=== PATIENT | male | born 1950 | race Caucasian/White ===

== ENCOUNTER → 2020-09-28 | Outpatient (CLI) | payer MEDICARE ==
[~2020-09-28] MED LIST: ATENOLOL 50 MG50 M1 PO; CRESTOR20 MG PO; FISH OIL 1,001000 M3 PO; K-DUR 20 MEQ T20 MEQ PO; LISINOPRIL2.5 MG PO; NAPROXEN250 MG PO; TENORETIC 50 T1 EACH PO; VITAMIN E1000 UNIT PO
--- NOTE | 2020-09-28 09:58 | 2DMMODE ---
[place] [address] 2 D/M-MODE ECHOCARDIOGRAM Name: RICKI BLUE Room: [facility]#: [id number] Admission: 09/28/20 Attend Phys: Andreea Ward Discharge: Date of : 48 Date of Service: 09/28/20 0958 Report #: [id number] THIS REPORT FOR: cc: Maritza Rodriguez MD, Tuongvan T. MD Blick, David R. MD [facility] ~ APPROVED REPORT Study performed: 09/28/2020 07:44:21 EXAM: Comprehensive 2D, Doppler, and color-flow Echocardiogram Patient Location: Out-Patient BSA: 2.27 HR: 70 bpm BP: 135/80 mmHg Other Information Study Quality: Good Indications Aortic Valve Disease Chest Pain Hypertension/HDD 2D Dimensions IVSd: 10.48 (7-11mm) LVOT Diam: 19.97 (18-24mm) LVDd: 44.69 mm PWd: 9.39 (7-11mm) Ascending Ao: 32.28 (22-36mm) LVDs: 28.14 (25-40mm) Aortic Root: 27.07 mm Volumes Left Atrial Volume (Systole) LA ESV Index: 14.60 mL/m2 Aortic Valve AoV Peak Benedict.: 2.19 m/s AO Peak Gr.: 19.25 mmHg LVOT Max P.34 mmHg AO Mean Gr.: 11.01 mmHg LVOT Mean P.18 mmHg LVOT Max V: 0.76 m/s AO V2 VTI: 50.35 cm LVOT Mean V: 0.50 m/s [place] (VTI): 1.18 cm2 LVOT V1 VTI: 19.04 cm AI [place]: 2.15 m/s2 [place] [address] 2 D/M-MODE ECHOCARDIOGRAM Name: RICKI BLUE Room: [facility]#: [id number] Admission: 09/28/20 Attend Phys: Andreea Ward Discharge: Date of : 48 Date of Service: 09/28/20 0958 Report #: [id number] AI PHT: 486.99 ms Mitral Valve E/A Ratio: 1.34 MV Decel. Time: 192.69 ms MV E Max Benedict.: 0.77 m/s MV PHT: 55.88 ms MVA (PHT): 3.94 cm2 TDI E/Lateral E': 7.70 E/Medial E': 9.63 Medial E' Benedict.: 0.08 m/s Lateral E' Benedict.: 0.10 m/s Pulmonary Valve PV Peak Benedict.: 0.98 m/s PV Peak Gr.: 3.82 mmHg Tricuspid Valve RAP Estimate: 5.00 mmHg TR Peak Gr.: 25.19 mmHg RVSP: 30.19 mmHg PA Pressure: 30.19 mmHg Left Ventricle The left ventricle is normal size. There is normal LV segmental wall motion. There is normal left ventricular wall thickness. Left ventricular systolic function is normal. The left ventricular ejection fraction is within the normal range. LVEF is 55-60%. The left ventricular diastolic function is normal. Right Ventricle The right ventricle is normal size. The right ventricular systolic function is normal. Atria The left atrium size is normal. The right atrium size is normal. Aortic Valve Aortic valve is calcified. Mild aortic regurgitation. There is mild aortic valvular stenosis. Mitral Valve The mitral valve is mildly thickened. Trace mitral regurgitation. No evidence of mitral valve stenosis[place] [address] 2 D/M-MODE ECHOCARDIOGRAM Name: RICKI BLUE Room: [facility]#: [id number] Admission: 09/28/20 Attend Phys: Andreea Ward Discharge: Date of : 48 Date of Service: 09/28/20 0958 Report #: [id number] The tricuspid valve is normal in structure. Mild tricuspid regurgitation. Pulmonic Valve The pulmonary valve is normal in structure. There is no pulmonic valvular regurgitation. Great Vessels The aortic root is normal in size. IVC is normal in size and collapses >50% with inspiration. Pericardium There is no pericardial effusion. <Conclusion> LVEF is 55-60%. There is mild aortic valvular stenosis. Mild aortic regurgitation. Trace mitral regurgitation. <ELECTRONICALLY SIGNED> By: Cheng Jj MD, FACC 09/28/2058 7 7 Cheng Jj MD, FACC /INF
--- NOTE | 2020-09-28 17:11 | CARDNUC ---
[place] [address] CARDIAC NUCLEAR IMAGING REPORT Name: RICKI BLUE Room: [facility]#: [id number] Admission: 09/28/20 Attend Phys: Andreea Ward Discharge: Date of : 48 Date of Service: 09/28/20 1711 Report #: [id number] THIS REPORT FOR: cc: Maritza Rodriguez MD, Tuongvan T. MD Liston, Michael J. MD [facility] ~ APPROVED REPORT Study performed: 09/28/2020 11:00:31 Exam: Nuclear Stress Test Indication: Left sided chest pain. Patient Location: Out-Patient Stress Tech: Mabel Ibarra Stress Nurse: Mary Mckeon R.N. Ht: 5 ft 11 in Wt: 238 lbs BSA: 2.27 m2 BMI: 33.19 Medical History Medical History: Chest pain, cardiac murmur, nonrheumatic aortic valve stenosis, ED, GERD, hypercholesterolemia, DM II, HTN, HLD, past smoker, obesity. Medications: Tenoretic, Lisinopril, Klor-con, Rosuvastatin. Allergies: PNC, simvastatin. Cardiac Risk Factors: Age, DM, HTN, Hyperlipidemia, Past Smoker, murmur, nonrheumatic aortic valve stenosis, obesity. Previous Cardiac Procedures: None Pretest Chest Pain Characteristics: No chest pain Exercise History: Physically active Physical Disabilities: None noted Meds Held (24 hrs): Tenoretic. Stress Test Details Stress Test: Exercise stress testing was performed using a Maykel protocol. HR Resting HR: 65 bpm Max Heart Rate (APMHR): 150 bpm Max HR Achieved: 255 bpm Target HR (85% APMHR): 127 bpm % of APMHR: 170 Recovery HR: 91 [place] [address] CARDIAC NUCLEAR IMAGING REPORT Name: RICKI BLUE Room: [facility]#: [id number] Admission: 09/28/20 Attend Phys: Andreea Wadr Discharge: Date of : 48 Date of Service: 09/28/20 1711 Report #: [id number] Resting BP: 149/72 mmHg Max BP: 211/71 mmHg ECG Resting ECG: Sinus Rhythm Stress ECG: Sinus Tachycardia ST Change: Downsloping ST depression Maximum ST Deviation: 1 mm Arrhythmia: None Recovery ECG: Sinus Rhythm Recovery ST Change: Downsloping ST depression Recovery ST Deviation: 1 mm Recovery Arrhythmia: None Clinical Reason for Termination: Completed protocol, Maximal effort, Dyspnea. Stress Symptoms: Dyspnea, chest tightness 4/10, leg fatigue. Exercise duration: 8 min 44 sec Exercise capacity: 10.16 METs Overall Exercise Capacity for Age: Superior Patient noted mild chest tightness with standard Maykel protocol exercise suggestive of exertional angina. Nurse Comments A 69 year old male tolerated a treadmill nuclear stress test to stage 3, target HR achieved. Patient was stable and stated he felt good when escorted to nuclear medicine for imaging. Exercise capacity - Superior. Stress ECG Conclusion The baseline twelve-lead EKG shows sinus rhythm without significant ST segment abnormality. EKGs obtained during and post exercise show sinus rhythm and sinus tachycardia with [address] segment depression noted in the inferior and anterolateral leads. NM EXAM: Myocardial Perfusion REST/STRESS Resting Data Rest SPECT myocardial perfusion imaging was performed in supine position 30 minutes following the intravenous injection of 9.2 mCi of Tc-99m Sestamibi. Time of rest injection: 900 The images were gated to evaluate regional wall motion and calculate left ventricular ejection fraction. Administration Route: [place] [address] CARDIAC NUCLEAR IMAGING REPORT Name: RICKI BLUE [place] Room: [facility]#: [id number] Admission: 09/28/20 Attend Phys: Andreea Ward Discharge: Date of : 48 Date of Service: 09/28/20 1711 Report #: [id number] Administration Site: Right AC Exercise Stress At peak stress, the patient was injected intravenously with 28.7mCi of Tc-99m Sestamibi. Time of stress injection: 11:15 Administration Route: IV Administration Site: Right AC Heart Rate at time of stress injection: 141 bpm. Patient continued to exercise for 1 minute(s). Gated Stress SPECT was performed 30 minutes after stress injection. The images were gated to evaluate regional wall motion and calculate left ventricular ejection fraction. Prone imaging was performed. Study Quality Study: Good Artifact: No artifact Study Data At rest, the left ventricular ejection fraction was 66%.. Post stress, the left ventricular ejection was 59%.. TID = 0.92. Perfusion There is a focal moderate intensity reversible defect of the apex suggesting ischemia in the apex. No other significant fixed or reversible defects are identified. Wall Motion Global LV systolic function appears normal. Nuclear Conclusion ECG Findings: positive for ischemia Clinical Findings: positive for ischemia Nuclear Findings: positive for ischemia Exercise Capacity: normal Left Ventricular Function: normal Risk Study: moderate Perfusion study suggest region of ischemia involving the apex. Global LV systolic function is preserved. This is a moderate risk study. <Conclusion> The baseline twelve-lead EKG shows sinus rhythm [place] [address] CARDIAC NUCLEAR IMAGING REPORT Name: RICKI BLUE Room: [facility]#: [id number] Admission: 09/28/20 Attend Phys: Andreea Ward Discharge: Date of : 48 Date of Service: 09/28/20 1711 Report #: [id number] segment abnormality. EKGs obtained during and post exercise show sinus rhythm and sinus tachycardia with [address] segment depression noted in the inferior and anterolateral leads. <ELECTRONICALLY SIGNED> By: Marcos White MD, FACC 09/28/201710 10 10 Marcos White MD, FACC /INF
== END ==
LOC: M.NUC 09-19 14:57 → M.CRD 09-23 13:00 → M.NUC 09-23 15:00 → M.CRD 07:30
PROVIDERS: ATTEND Internal Medicine
DX: I08.3 Combined rheumatic disorders of mitral, aortic and tricuspid valves (principal); R55 Syncope and collapse; R00.0 Tachycardia, unspecified; R07.89 Other chest pain; I10 Essential (primary) hypertension

== ENCOUNTER 2020-10-10 09:08 | Observation (INO) | payer MEDICARE ==
[~2020-10-10] VITALS: Ht 182.9 cm; Wt 106.1 kg
[2020-10-10] VITALS (11 sets, daily range): BP systolic 121–140; BP diastolic 59–83
[~2020-10-10 09:08] MED LIST changes: +ATENOLOL-CHLOR1 EACH PO
[2020-10-10 09:40] LABS: HEMATOCRIT 47.5 % (42.0-52.0); HEMOGLOBIN 16.7 gm/dL (14.0-18.0); MCH 31.8 pg (26.0-34.0); MCHC 35.2 g/dL (28.0-37.0); MCV 90.3 fL (80.0-100.0); MPV 7.2 fl. (7.2-11.1); RBC 5.26 mil/uL (4.50-6.00); RDW-CV 13.5 % (10.5-14.5); WBC 9.1 thou/uL (4.0-11.0)
[2020-10-10 09:54] LABS: ALBUMIN 3.9 g/dL (3.4-5.0); ALKALINE PHOSPHATASE 70 U/L (46-116); BUN 14 mg/dL (7-18); CALCIUM 8.5 mg/dL (8.5-10.1); CHOLESTEROL 201 mg/dL (<200); CO2 29 mmol/L (21-32); GLUCOSE 134 mg/dL (70-99); HDL CHOLESTEROL 52 mg/dL (>40); LDL CHOLESTEROL 125 mg/dL (<100); SGOT 24 U/L (15-37); SGPT 39 U/L (30-65); TC:HDL 3.9 Ratio (Not establshd); TOTAL BILIRUBIN 0.9 mg/dL (<0.1-1.0); TOTAL PROTEIN 7.5 g/dL (6.4-8.2); TRIGLYCERIDE 123 mg/dL (<150); VLDL 25 mg/dL (<40)
[2020-10-10 10:01] LABS: ANION GAP 8 mmol/L (7-16); CHLORIDE 98 mmol/L (98-107); POTASSIUM 3.7 mmol/L (3.5-5.1); SODIUM 135 mmol/L (136-145)
[2020-10-10 10:02] LABS: SERUM ASSESSMENT Clear
[2020-10-10 10:03] LABS: APTT 26.6 Seconds (25.0-31.3); INR 0.9
--- NOTE | 2020-10-10 14:03 | CARD ---
[address] [address] CARDIAC CATH REPORT Name: RICKI BLUE Room: [address] M.R.#: [id number] Admission: 10/10/20 Attend Phys: Lee Donovan MD, Discharge: Date of : 48 Report #: [id number] THIS REPORT FOR: cc: Maritza Rodriguez MD, Tuongvan T. MD Holkins,Lee Petit MD [facility] ~ APPROVED REPORT Study performed: 10/10/2020 10:03:38 Patient Details Patient Status: Out-Patient Room #: The patient is a 70 year-old male Event Personnel Lee Donovan Portfolio Accountant, Clarissa Easton RN RN, Patricia Judd RTR Scrub, Roly Hilliard RTR Monitor Procedures Performed Left Heart Cath w/or w/o Coronaries [id number] [facility] JOS w/Atherectomy Single RCA [id number] [facility] Hemostasis w/ Angioseal Indication Positive stress test Risk Factors Hypercholesterolemia, Hypertension Admission/Lab Medications/Medications given during procedure Fentanyl IV 25 mcg, Midazolam (Versed) IV 2 mg, Lidocaine Subcut 20 ml, Nitroglycerin IC 150 mcg, Angiomax IV 16 ml, Angiomax IV 37.1 ml per hr, Midazolam (Versed) IV 1 mg, Effient PO 60 mg, Aspirin PO 162 mg Procedure Narrative The patient was brought electively to the Cardiac Catheterization Laboratory and was prepped and draped in a sterile manner. The right femoral was infiltrated with 2% Lidocaine subcutaneous anesthesia. IV conscious sedation was used throughout procedure with appropriate monitoring and was performed in the presence of a registered nurse who was an independent trained observer other than the physician performing the procedure. A [place] 6 FR sheath was inserted into the right femoral artery. Coronary angiography was performed using coronary diagnostic catheters. The [place] [address] CARDIAC CATH REPORT Name: RICKI BLUE [place] Room: [address] M.R.#: [id number] Admission: 10/10/20 Attend Phys: Lee Donovan MD, Discharge: Date of : 48 Report #: [id number] and visualized with a Diagnostic JR4 6Fr catheter. The left coronary system was accessed and visualized with a Diagnostic JL4 6Fr catheter. The left ventricle was accessed and visualized with a Diagnostic Pigtail 6Fr catheter. Left ventricular/Aortic Valve gradient assessed via catheter pullback. Left ventriculogram was performed in MACEDONIAN projection. Pre-demployment femoral angiogram was performed . Closure device was deployed with a 6 Fr Angioseal. The patient tolerated the procedure well and there were no complications associated with the procedure. There was no hematoma. Intraoperative Conscious Sedation Sedation start time: 1019 Case end Time: 1151 Fentanyl 75 mcg Versed 5 mg Fluoro Time: 35.3 minutes Dose: DAP 811503 cGycm2 4856.09 mGy Contrast Type and Amount: Omnipaque 400 ml Coronary Angiography The patient's coronary anatomy is right dominant. Diagnostic Cath Left Main 0% narrowing LAD 75% calcified proximal LAD stenosis with 50% mid vessel narrowing Circumflex Small nondominant vessel with 30% mid vessel narrowing Right Coronary Large dominant vessel with 80% tubular calcified proximalmid vessel stenosis with 60% posterior lateral branch narrowing and 50% posterior descending branch narrowing Left Ventriculography The left ventricle is normal in size with normal contractility. The left ventricular ejection fraction is estimated to be 60%. Left ventricular wall motion abnormalities are not present. There is no mitral insufficiency. Hemodynamics The aortic pressure is 120/54 mmHg with a mean of 72 mmHg. The left ventricular pressure is 128/3 mmHg with a mean of mmHg. The left ventricular end diastolic pressure is 18 mmHg. There was no gradient across the aortic valve upon pullback[place] [address] CARDIAC CATH REPORT Name: RICKI BLUE Room: [address]#: [id number] Admission: 10/10/20 Attend Phys: Lee Donovan MD, Discharge: Date of : 48 Report #: [id number] Anticoagulation was achieved with Angiomax. 16mL Percutaneous coronary intervention was performed on the proximal right coronary artery. The lesion stenosis prior to intervention was 80% with DIETER 3 flow. A 6Fr JR 4.0 SH Guide Catheter was used to engage the Right ostium. A IG: BMW 190cm Interventional Guidewire was used to cross the lesion. BALLOON DILATION A Balloon catheter Trek RX 2.5 X 12 was inserted and inflated up to 17.00atm for 13seconds. Additional Inflation: 18.00atm for 11seconds. Additional Inflation: 18.00atm for 10seconds. A balloon catheter NC Trek RX 2.75 X 12 was inserted and inflated up to 18.00 reji for 14 seconds. Additional Inflation: 20.00 reji for 10 seconds. Additional Inflation: 20.00 reji for 12 seconds. A cutting balloon Aniosculpt 2.5 X 10mm was inserted and inflated up to 14.00 reji for 17 seconds. Additional Inflation: 14.00 reji for 13 seconds. Additional Inflation: 16.00 reji for 13 seconds. A balloon catheter NC Trek 3.0 X 12mm was inserted and inflated up to 12.00 reji for 10 seconds. Additional Inflation: 15.00 reji for 10 seconds. Additional Inflation: 17.00 reji for 9 seconds. STENT DEPLOYMENT A drug-eluting stent Howard RX Stent 2.78m27oo was inserted and inflated up to 15.00atm for 17seconds. Additional Inflation: 17.00atm for 12seconds. A Drug-eluting Stent Howard 2.75 X 12mm was inserted and inflated up to 17.00 reji for 14 seconds. Additional Inflation: 18.00 reji for 8 seconds, Additional Inflation: 20.00 reji for 10 seconds. POST STENT DEPLOYMENT BALLOON DILATION A Balloon catheter NC Trek RX 3.0 X 8 was inserted and inflated up to 20.00atm for 9seconds. Additional Inflation: 22.00atm for 8seconds. Additional Inflation: 22.00atm for 8seconds. Final angiography reveals 10 % stenosis with DIETER 3 flow. Conclusion 1. Significant multivessel coronary artery disease characterized by the following: A 75% calcified proximal LAD stenosis with 50% mid vessel narrowing B 30% narrowing of the midportion of the nondominant circumflex [address] [place] [address] CARDIAC CATH REPORT Name: RICKI BLUE Room: [address] Gely Oliveira.#: [id number] Admission: 10/10/20 Attend Phys: Lee Donovan MD, Discharge: Date of : 48 Report #: [id number] C large dominant right coronary artery with 80% tubular calcified proximalmid vessel stenosis with 60% postero- lateral branch narrowing and 50% posterior descending branch narrowing 2. Normal left ventricular systolic function, estimated ejection fraction being 60% 3. Modest elevation of left ventricular end-diastolic pressure at rest 4. Successful PCI with angioplasty atherotomy/atherectomy and stenting of the proximalmid right coronary artery with 10% residual narrowing and DIETER-3 flow to the distal vessel Recommendations Cardiac Risk Reduction Program Aggressive Medical Therapy Medications Administered Aspirin (any) Prasugrel Diagnostic Cath Approved by: Lee Donovan MD Date/Time: 10/10/2020 13:56:53 <ELECTRONICALLY SIGNED> By: Lee Donovan MD, [facility] 10/10/20 1402 01 140Lee Donovan MD, FAC /INF
--- NOTE | 2020-10-10 14:41 | EKG ---
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: : 1950 Requested By: Lee Donovan Order Number: [id number] Reading MD: Lee Donovan Measurements Intervals [place] Rate: 59 P: 18 [place]: 206 QRS: -4 QRSD: 80 T: 3 QT: 433 QTc: 429 Interpretive Statements Sinus rhythm Borderline T wave abnormalities Compared to ECG 03/15/2012 18:19:36 Prolonged QT interval no longer present T-wave abnormality still present Electronically Signed On 10-10-2020 14:41:36 CDT by Lee Donovan [email or web address] <ELECTRONICALLY SIGNED> By: Lee Donovan MD, [facility] 10/10/20 1441 0955 0955 Lee Donovan MD, [facility] /EPI
--- NOTE | 2020-10-10 14:43 | EKG ---
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
[2020-10-11] VITALS: BP 139/67
[2020-10-11 05:24] LABS: HEMATOCRIT 44.3 % (42.0-52.0); HEMOGLOBIN 15.4 gm/dL (14.0-18.0); MCHC 34.8 g/dL (28.0-37.0); MCV 89.2 fL (80.0-100.0); MPV 7.3 fl. (7.2-11.1); RBC 4.96 mil/uL (4.50-6.00); RDW-CV 13.7 % (10.5-14.5); WBC 10.3 thou/uL (4.0-11.0)
[2020-10-11 05:44] VITALS: BP 125/57
[2020-10-11 05:45] LABS: ALBUMIN 3.3 g/dL (3.4-5.0); CALCIUM 8.4 mg/dL (8.5-10.1); CREATININE 0.8 mg/dL (0.6-1.3); POTASSIUM 3.6 mmol/L (3.5-5.1); TOTAL PROTEIN 6.6 g/dL (6.4-8.2)
[2020-10-11 05:57] LABS: TROPONIN-I LEVEL 1.16 ng/mL (<0.06)
[2020-10-11 08:00] VITALS: BP 124/67
[2020-10-11] MEDS ORDERED: EFFIENT10 MG PO (08:50)
[2020-10-11] MEDS ORDERED: ROSUVASTATIN CA40 MG PO (08:52)
[2020-10-11] MEDS ORDERED: BAYER CHEWABLE81 MG PO (08:53)
--- NOTE | 2020-10-11 09:54 | EKG ---
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
[2020-10-11] MEDS ORDERED: NITROGLYCERIN0.4 MG SUBLING (10:18)
[2020-10-11 11:00] VITALS: BP 124/67
--- NOTE | 2020-10-11 14:03 | D ---
[address] [address] DISCHARGE SUMMARY Name: RICKI BLUE Room: [address] Gely Sim#: [id number] Admission: 10/10/20 Attend Phys: Lee Donovan MD, Discharge: 10/11/20 Date of : 48 Report #: [id number] THIS REPORT FOR: cc: Maritza Rodriguez MD, Tuongvan T. MD Holkins,Lee Petit MD [facility] ~ DATE OF DISCHARGE: 10/11/2020 The patient discharged from [facility]. FINAL DISCHARGE DIAGNOSES: 1. Abnormal nuclear stress test. 2. Angina pectoris. 3. Coronary artery disease. 4. Hypertension. 5. Hyperlipidemia. 6. Mild diabetes. 7. History of tobacco use. 8. Minimal aortic stenosis. PROCEDURES: On 10/10/2020 -- left heart catheterization, left ventriculography, selective coronary arteriography, and percutaneous coronary intervention with deployment of sequential drug-eluting stents at the site of 80% tubular calcified proximal-mid right coronary stenosis. HOSPITAL COURSE: The patient is a very pleasant 70-year-old male who has noted exertional chest discomfort for some weeks to months. Recent nuclear stress test was abnormal. He has underlying hyperlipidemia, hypertension, mild diabetes and a history of tobacco use. In that context, I recommended proceeding with cardiac catheterization. That was undertaken on 10/10/2020. The study revealed significant coronary artery disease, characterized by the following: A. An 80% calcified tubular proximal-mid right coronary stenosis with 60% posterolateral, 50% posterior descending branch narrowings. B. A 75% proximal and 50% mid LAD narrowings, the proximal narrowing being significantly calcified. C. A 30% mid circumflex narrowing, this being a nondominant vessel. LV function was normal, estimated ejection fraction of 60%. Given this data, I performed PCI on the proximal-mid right coronary artery, performing angioplasty arthrotomy/atherectomy and deployment of 2 drug-eluting stents in the proximal-mid right coronary artery with 10% [place] [address] DISCHARGE SUMMARY Name: BLUE,RICKI MOODY Room: [address] Gely Sim#: [id number] Admission: 10/10/20 Attend Phys: Lee Donovan MD, Discharge: 10/11/20 Date of : 48 Report #: [id number] DIETER 3 flow of the distal vessel. Troponin nabila minimally to 1.16. The patient had no chest pain post-procedurally. He ambulated in the hallways without difficulty and there was good hemostasis at the right femoral site of catheterization. Laboratory on 10/11 revealed a sodium of 138, potassium 3.6, BUN 13, creatinine 0.8, glucose 121. White blood cell count 10,300, hemoglobin 15.4, hematocrit 44.3, platelets 213,000. Troponin 1.16. Cholesterol 201, triglycerides 123, HDL 52, LDL 125. Given his increased LDL cholesterol in this context, I elected to increase his dose of Crestor from 20 to 40 mg daily. He is discharged to home on the following medications: Prasugrel or Effient 10 mg daily with a 60 mg dose given periprocedurally, rosuvastatin or Crestor 40 mg daily, aspirin 81 mg daily, potassium chloride 20 mEq daily, fish oil 1000 mg daily, lisinopril 2.5 mg daily, Naprosyn 250 mg p.o. b.i.d., vitamin E 1000 unit capsule daily, atenolol//chlorthalidone 50/25 one tablet daily. Therefore, the patient is discharged home in stable condition on the aforementioned medications, with followup with myself on 10/20/2020 at 0900 at the [facility] office. <ELECTRONICALLY SIGNED> By: Lee Donovan MD, [facility] 10/11/20 1403 0905 0933Lee Donovan MD, FAC /nt
== END 2020-10-11 11:20 | disposition home or self-care (01) ==
LOC: M.CL 09:08 → M.TBA-ER 12:27 → M.2W 15:12
PROVIDERS: ADMIT Internal Medicine; ATTEND Internal Medicine
DX: I25.119 Atherosclerotic heart disease of native coronary artery with unspecified angina pectoris (principal); R94.39 Abnormal result of other cardiovascular function study; I10 Essential (primary) hypertension; E78.5 Hyperlipidemia, unspecified; E11.9 Type 2 diabetes mellitus without complications; I35.0 Nonrheumatic aortic (valve) stenosis; Z88.0 Allergy status to penicillin; Z88.8 Allergy status to other drugs, medicaments and biological substances; Z87.891 Personal history of nicotine dependence; Z79.01 Long term (current) use of anticoagulants; Z79.899 Other long term (current) drug therapy

== ENCOUNTER 2020-10-26 07:34 | Observation (INO) | payer MEDICARE ==
[~2020-10-26] VITALS: Ht 182.9 cm; Wt 102.5 kg
[2020-10-26] VITALS (16 sets, daily range): BP systolic 125–1446; BP diastolic 58–76
--- NOTE | ~2020-10-26 | H ---
[address] [address] HISTORY AND PHYSICAL Name: RICKI BLUE ANKUR Room: [address] [place] M.RMemo#: [id number] Admission: 10/26/20 Attend Phys: Lee Donovan MD, Discharge: 10/27/20 Date of : 48 Report #: [id number] THIS REPORT FOR: cc: Maritza Rodriguez MD, Tuongvan T. MD [facility],Medical Records Staff ~ Please refer to the History and Physical performed in the physician's office. By: [id number] Records Staff [facility] /RIGO
[~2020-10-26 07:34] MED LIST changes: +BAYER CHEWABLE81 MG PO; +EFFIENT10 MG PO; +NITROGLYCERIN0.4 MG SUBLING; +ROSUVASTATIN CA40 MG PO
[2020-10-26] MEDS ORDERED: TERBINAFINE HC250 MG PO (08:15)
[2020-10-26 08:45] LABS: HEMATOCRIT 44.8 % (42.0-52.0); HEMOGLOBIN 15.8 gm/dL (14.0-18.0); MCH 31.3 pg (26.0-34.0); MCHC 35.3 g/dL (28.0-37.0); MCV 88.8 fL (80.0-100.0); MPV 7.4 fl. (7.2-11.1); RBC 5.04 mil/uL (4.50-6.00); RDW-CV 13.1 % (10.5-14.5); WBC 7.9 thou/uL (4.0-11.0)
[2020-10-26 08:50] LABS: ANION GAP 4 mmol/L (7-16); BUN 14 mg/dL (7-18); CALCIUM 8.8 mg/dL (8.5-10.1); CHLORIDE 102 mmol/L (98-107); CO2 30 mmol/L (21-32); CREATININE 0.9 mg/dL (0.6-1.3); GLUCOSE 127 mg/dL (70-99); POTASSIUM 3.5 mmol/L (3.5-5.1); SODIUM 136 mmol/L (136-145)
[2020-10-26 08:53] LABS: APTT 28.2 Seconds (25.0-31.3); PROTIME 10.3 Seconds (9.20-11.50)
[2020-10-26 08:55] LABS: ALBUMIN 4.1 g/dL (3.4-5.0); ALKALINE PHOSPHATASE 69 U/L (46-116); SERUM ASSESSMENT Clear; SGOT 21 U/L (15-37); SGPT 37 U/L (30-65); TOTAL PROTEIN 7.6 g/dL (6.4-8.2)
[2020-10-26 09:05] LABS: CHOLESTEROL 170 mg/dL (<200); HDL CHOLESTEROL 44 mg/dL (>40); LDL CHOLESTEROL 100 mg/dL (<100); TC:HDL 3.9 Ratio (Not establshd); TRIGLYCERIDE 131 mg/dL (<150); VLDL 26 mg/dL (<40)
--- NOTE | 2020-10-26 13:47 | CARD ---
[address] [address] CARDIAC CATH REPORT Name: RICKI BLUE Room: [address] M.RMemo#: [id number] Admission: 10/26/20 Attend Phys: Lee Donovan MD, Discharge: Date of : 48 Report #: [id number] THIS REPORT FOR: cc: Maritza Rodriguez MD, Tuongvan T. MD [place],Lee Petit MD [facility] ~ APPROVED REPORT Study performed: 10/26/2020 09:06:41 Patient Details Patient Status: Out-Patient Room #: The patient is a 70 year-old male Event Personnel Lee Donovan Supervisor Sterile Processing, Clraissa Easton RN RN, Roly Hilliard RTR Scrub, Patricia Judd RTR Monitor Procedures Performed Art Access - L femoral artery Left Heart Cath w/or w/o Coronaries JOS Place w/wo Plasty Single LAD Hemostasis w/ Angioseal Indication Positive stress test Risk Factors Hypercholesterolemia, Hypertension Previous Procedures/Diagnoses Previous PCI Admission/Lab Medications/Medications given during procedure Oxygen Nasal cannula 2 l per min, 0.9% Sodium Chloride IV 75 ml per hr, Lidocaine Subcut 14 ml, 0.9% Sodium Chloride IV 125 ml per hr, Nitroglycerin IC 300 mcg, Angiomax IV 16 ml, Angiomax Drip IV 37.3 ml per hr, Aspirin PO 81 mg, Effient PO 30 mg Procedure Narrative The patient was brought electively to the Cardiac Catheterization Laboratory and was prepped and draped in a sterile manner. The left femoral was infiltrated with 2% Lidocaine subcutaneous anesthesia. A Caldwell 6 FR sheath was inserted into the left femoral artery. Coronary angiography was performed [place] [address] CARDIAC CATH REPORT Name: RICKI BLUE Room: [address]#: [id number] Admission: 10/26/20 Attend Phys: Lee Donovan MD, Discharge: Date of : 48 Report #: [id number] catheters. The right coronary system was accessed and visualized with a Diagnostic 6 Fr JR 4 catheter. The left coronary system was accessed and visualized with a Diagnostic 6 Fr JL 4 catheter. The left ventricle was accessed and visualized with a Diagnostic 6 Fr Pigtail catheter. Left ventricular/Aortic Valve gradient assessed via catheter pullback. Pre-demployment femoral angiogram was performed . Closure device was deployed with a Fr Angioseal STS 6Fr. The patient tolerated the procedure well and there were no complications associated with the procedure. There was no hematoma. Intraoperative Conscious Sedation Sedation start time: 09:26 Case end Time: 10:35 Fentanyl 50 mcg Versed 3 mg Fluoro Time: 15.2 minutes Dose: DAP [id number] cGycm2 2279 mGy Contrast Type and Amount: Visipaque 240 ml Coronary Angiography The patient's coronary anatomy is right dominant. Diagnostic Cath Left Main 0% narrowing LAD 75% tubular calcified proximal LAD stenosis with 70% focal distal LAD narrowing Circumflex Nondominant vessel with 40% distal narrowing Right Coronary Large dominant vessel with 40% very proximal narrowing followed by widely patent proximal/mid vessel stents with 50% distal narrowing and 60% posteolateral branch narrowing Left Ventriculography Left Ventriculography was not performed. Hemodynamics The aortic pressure is 121/54 mmHg with a mean of 81 mmHg. The left ventricular pressure is 128/3 mmHg with a mean of mmHg. The left ventricular end diastolic pressure is 20 mmHg. There was no gradient across the aortic valve upon pullback. PCI Technique Lesion Anticoagulation was achieved with Angiomax Drip. Patient was preloaded with Angiomax IV 16 ml. Percutaneous coronary intervention was performed on the distal left anterior descending artery segment. The lesion stenosis prior to intervention was 70% with DIETER 3 [place] [address] CARDIAC CATH REPORT Name: RICKI BLUE Room: [address]#: [id number] Admission: 10/26/20 Attend Phys: Lee Donovan MD, Discharge: Date of : 48 Report #: [id number] 6F XB LAD 3.5 Guide Catheter was used to engage the left ostium. A IG: BMW 190cm Interventional Guidewire was used to cross the lesion. BALLOON DILATION A Balloon catheter Mini Trek RX 2.0 X 12 was inserted and inflated up to 17.00atm for 9seconds. STENT DEPLOYMENT A drug-eluting stent Osborn RX Stent 2.0X15mm was inserted and inflated up to 15.00atm for 7seconds. Additional Inflation: 18.00atm for 9seconds. Final angiography reveals 5 % stenosis with DIETER 3 flow. PCI Technique Lesion 2 Percutaneous Coronary Intervention was performed on the proximal left anterior descending artery segment. Patient was preloaded with Angiomax IV 16 ml. The lesion stenosis prior to intervention was 75% with DIETER 3 flow. A 6F XB LAD 3.5 Guide Catheter was used to engage the left ostium. A IG: BMW 190cm Interventional Guidewire was used to cross the lesion. Balloon Dilation A Balloon catheter Mini Trek RX 2.0 X 12 was inserted and inflated up to 18.00atm for 7seconds. A balloon catheter Trek RX 2.5 x 12 was inserted and inflated up to 15 CLIFFORD for 12 seconds. A balloon catheter NC Trek 2.75 x 12 was inserted and inflated up to 17 CLIFFORD for 6 seconds and 17 CLIFFORD for 8 seconds. Stent Deployment A drug-eluting stent Salomón RX Stent 2.38H63zl was inserted and inflated up to 15.00atm for 11seconds. Additional Inflation: 15.00atm for 10seconds. Final angiography reveals 10 % stenosis with DIETER 3 flow. Conclusion 1. Significant coronary artery disease characterized by the following: A 75% tubular calcified proximal LAD stenosis with 70% focal [place] [address] CARDIAC CATH REPORT Name: RICKI BLUE Room: [address] MMemoR.#: [id number] Admission: 10/26/20 Attend Phys: Lee Donovan MD, Discharge: Date of : 48 Report #: [id number] B 40% narrowing of the distal portion of the nondominant circumflex C 40% very proximal right coronary narrowing followed by widely patent proximalmid vessel stents with 50% distal narrowing and 60% postero- lateral branch narrowing 2. Moderate elevation of left ventricular end-diastolic pressure at rest 3. Successful PCI with deployment of drug-eluting stents at the sites of 75% proximal and 70% distal LAD stenosis with 10 and 0% residual narrowings and DIETER-3 flow to the distal vessel Recommendations Cardiac Risk Reduction Program Aggressive Medical Therapy Medications Administered Aspirin (any) Prasugrel Diagnostic Cath Approved by: Lee Donovan MD Date/Time: 10/26/2020 13:45:17 <ELECTRONICALLY SIGNED> By: Lee Donovan MD, [facility] 10/26/20 1347 1347 1347Lee Donovan MD, FACC /INF
--- NOTE | 2020-10-26 14:20 | EKG ---
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 MANUEL : 1950 Requested By: Lee Donovan Order Number: [id number] Reading MD: Lee Donovan Measurements Intervals [place] Rate: 56 P: 24 MA: 217 QRS: -9 QRSD: 94 T: -72 QT: 441 QTc: 426 Interpretive Statements Sinus rhythm Borderline prolonged MA interval Nonspecific T abnormalities, lateral leads Compared to ECG 10/11/2020 05:25:00 T-wave abnormality now present Myocardial infarct finding no longer present Electronically Signed On 10-26-2020 14:20:12 CDT by Lee Donovan [email or web address] <ELECTRONICALLY SIGNED> By: eLe Donovan MD, [facility] 10/26/20 1420 4 4 Lee Donovan MD, FAC /EPI
--- NOTE | 2020-10-26 14:22 | EKG ---
[place] [address] ELECTROCARDIOGRAM REPORT Name: BLUEYASMINE DAILYYD ANKUR Room: [address] M.R.#: [id number] Admission: 10/26/20 Attend Phys: Andreea Ward Discharge: Date of : 48 Date of Service: 10/26/20 1130 Report #: [id number] THIS REPORT FOR: //name// [facility] Test Date: 2020-10-26 Test Time: 11:30:16 Pat Name: RICKI BLUE Department: Room: 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: JOSÉ MANUEL : 1950 Requested By: Lee Donovan Order Number: [id number] Reading MD: Lee Donovan Measurements Intervals [place] Rate: 54 P: 11 ID: 220 QRS: -6 QRSD: 91 T: -15 QT: 451 QTc: 428 Interpretive Statements Sinus rhythm Prolonged ID interval Low voltage, precordial leads Borderline T abnormalities, inferior leads Compared to ECG 10/26/2020 08:25:22 Low QRS voltage now present T-wave abnormality still present Electronically Signed On 10-26-2020 14:22:10 CDT by Lee Donovan [email or web address] <ELECTRONICALLY SIGNED> By: Lee Donovan MD, [facility] 10/26/20 1422 1130 1130 Lee Donovan MD, [facility] /EPI
[2020-10-27 01:05] VITALS: BP 113/51
[2020-10-27 04:15] LABS: HEMATOCRIT 41.3 % (42.0-52.0); HEMOGLOBIN 14.5 gm/dL (14.0-18.0); MCH 31.6 pg (26.0-34.0); MCHC 35.2 g/dL (28.0-37.0); MCV 89.8 fL (80.0-100.0); MPV 7.2 fl. (7.2-11.1); RBC 4.6 mil/uL (4.50-6.00); RDW-CV 13.1 % (10.5-14.5); WBC 7.3 thou/uL (4.0-11.0)
[2020-10-27 04:35] LABS: ALBUMIN 3.5 g/dL (3.4-5.0); CALCIUM 8.4 mg/dL (8.5-10.1); CREATININE 0.9 mg/dL (0.6-1.3); POTASSIUM 3.5 mmol/L (3.5-5.1); TOTAL BILIRUBIN 0.9 mg/dL (<0.1-1.0); TOTAL PROTEIN 6.5 g/dL (6.4-8.2); TROPONIN-I LEVEL 0.58 ng/mL (<0.06)
[2020-10-27 04:45] VITALS: BP 119/60
[2020-10-27 08:00] VITALS: BP 124/62
[2020-10-27 10:40] VITALS: BP 124/62
--- NOTE | 2020-10-27 13:01 | EKG ---
[place] [address] ELECTROCARDIOGRAM REPORT Name: RICKI BLUE Room: [address] M.R.#: [id number] Admission: 10/26/20 Attend Phys: Andreea Ward Discharge: 10/27/20 Date of : 48 Date of Service: 10/27/20 0926 Report #: [id number] THIS REPORT FOR: //name// [facility] Test Date: 2020-10-27 Test Time: 09:26:54 Pat Name: RICKI BLUE Department: Room: [facility] Gender: M Spd Manager: MCKENZIE : 1950 Requested By: Lee Donovan Order Number: [id number] Reading MD: Lee Donovan Measurements Intervals [place] Rate: 70 P: 22 TN: 212 QRS: 6 QRSD: 85 T: -46 QT: 394 QTc: 426 Interpretive Statements Sinus rhythm Borderline prolonged TN interval Low voltage, precordial leads Borderline T abnormalities, diffuse leads Compared to ECG 10/26/2020 11:30:16 No significant changes Electronically Signed On 10-27-2020 13:01:05 CDT by Lee Donovan [email or web address] <ELECTRONICALLY SIGNED> By: Lee Donovan MD, [facility] 10/27/20 1301 5 5 Lee Donovan MD, FAC /EPI
--- NOTE | 2020-10-27 13:07 | D ---
[address] [address] DISCHARGE SUMMARY Name: RICKI BLUE Room: [address] [place] Sim#: [id number] Admission: 10/26/20 Attend Phys: Lee Donovan MD, Discharge: 10/27/20 Date of : 48 Report #: [id number] THIS REPORT FOR: cc: Maritza Rodriguez MD, Tuongvan T. MD [place], John M. MD [facility] ~ DATE OF DISCHARGE: 10/27/2020 The patient discharged from [facility] [place] on 10/27/2020. FINAL DISCHARGE DIAGNOSES: 1. Abnormal nuclear stress test. 2. Complex coronary artery disease. 3. Status post PCIs to the right coronary artery 2 weeks ago and the left anterior descending on 10/26/2020. 4. Coronary artery disease. 5. Hypertension. 6. Hyperlipidemia. 7. History of prior tobacco use. 8. Minimal aortic stenosis. PROCEDURES: On 10/26/2020 -- left heart catheterization, left ventriculography, selective coronary arteriography and percutaneous coronary intervention with deployment of sequential drug-eluting stents in the proximal and distal LAD. HOSPITAL COURSE: The patient is a very pleasant 70-year-old male who remains active. He has noted chest discomfort on exertion and his stress test was remarkably abnormal. That triggered cardiac catheterization approximately 2 weeks ago, at which time he was found to have diffuse 80% proximal-mid right coronary stenosis with 75% tubular proximal LAD stenosis and 70% distal LAD narrowing. I performed complex PCI on the right coronary artery at that point, deploying sequential stents throughout the right coronary artery. I did not approach the LAD in that setting due to dye use and radiation time. In this setting, I elected to perform recatheterization on 10/26/2020, which revealed widely patent right coronary artery stents. There remained 75% tubular calcified proximal LAD stenosis with focal 70% distal LAD narrowing. I deployed 2 drug-eluting stents in the proximal and distal LAD after predilatation with good angiographic result, with 10 and 0% residual narrowings and DIETER 3 flow to the distal vessel. Troponin nabila minimally to 0.58. He had no chest pain post-procedurally and ambulated [place] [address] DISCHARGE SUMMARY Name: RICKI BLUE LARIMER Room: [address] [place] Sim#: [id number] Admission: 10/26/20 Attend Phys: Lee Donovan MD, Discharge: 10/27/20 Date of : 48 Report #: [id number] DISCHARGE MEDICATIONS: He was discharged to home on the following medications: Potassium chloride 20 mEq daily, fish oil 1000 mg daily, lisinopril 2.5 mg daily, Naprosyn 250 mg p.o. b.i.d., vitamin E 1000 units daily, atenolol/chlorthalidone 50/25 one tablet daily, prasugrel or Effient 10 mg daily with a 30 mg periprocedural dose having been given, rosuvastatin 40 mg daily, aspirin 81 mg daily, p.r.n. sublingual nitroglycerin, and terbinafine hydrochloride 250 mg daily. I will plan to see the patient in followup in approximately 4 weeks. Therefore, he was discharged home in stable condition on the aforementioned medications, with followup as described above. Of note, additional lab on 10/27 revealed sodium 141, potassium 3.5, BUN 12, creatinine 0.9, glucose 111. Hemoglobin 14.5, white blood cell count 7300 with 211,000 platelets. Thus, the patient is discharged home in stable condition on the aforementioned medications, with followup in 4 weeks. <ELECTRONICALLY SIGNED> By: Lee Donovan MD, FACC 10/27/20 1307 0822 0850Lee Donovan MD, FAC /nt
== END 2020-10-27 11:02 | disposition home or self-care (01) ==
LOC: M.CL 07:34 → M.TBA-CV 10:51 → M.2W 15:38
PROVIDERS: ADMIT Internal Medicine; ATTEND Internal Medicine
DX: I25.10 Atherosclerotic heart disease of native coronary artery without angina pectoris (principal); Z20.822 Contact with and (suspected) exposure to COVID-19; I10 Essential (primary) hypertension; E78.5 Hyperlipidemia, unspecified; R94.39 Abnormal result of other cardiovascular function study; I35.0 Nonrheumatic aortic (valve) stenosis; Z79.01 Long term (current) use of anticoagulants; Z87.891 Personal history of nicotine dependence

== ENCOUNTER 2021-01-08 01:45 | Inpatient (IN) | payer MEDICARE ==
[2021-01-08] VITALS (9 sets, daily range): BP systolic 123–167; BP diastolic 60–77
[~2021-01-08] VITALS: Ht 182.9 cm; Wt 108.9 kg
[~2021-01-08 01:45] MED LIST changes: +TERBINAFINE HC250 MG PO
[2021-01-08] MEDS ORDERED: SYNJARDY 5-1,01 EACH PO (02:00)
[2021-01-08 02:06] LABS: ABSOLUTE BASOPHILS 0.1 thou/uL (0.0-0.2); ABSOLUTE EOSINOPHILS 0.3 thou/uL (0.0-0.7); ABSOLUTE LYMPHOCYTES 1.9 thou/uL (0.8-5.3); ABSOLUTE MONOCYTES 1.3 thou/uL (0.0-1.2); ABSOLUTE NEUTROPHILS 5.2 thou/uL (1.6-8.1); BASOPHILS 0.7 %; HEMATOCRIT 44.4 % (42.0-52.0); HEMOGLOBIN 15.6 gm/dL (14.0-18.0); MCH 30.6 pg (26.0-34.0); MCHC 35.1 g/dL (28.0-37.0); MCV 87.1 fL (80.0-100.0); MONOCYTES 14.4 %; MPV 6.9 fl. (7.2-11.1); NUCLEATED RBCS 0 /100WBC; PLATELET COUNT* 245 thou/uL (150-400); POLYS 59.9 %; RDW-CV 13.3 % (10.5-14.5); WBC 8.7 thou/uL (4.0-11.0)
[2021-01-08 02:16] LABS: CALCIUM 8.9 mg/dL (8.5-10.1)
[2021-01-08 02:26] LABS: TOTAL BILIRUBIN 0.8 mg/dL (<0.1-1.0); TOTAL PROTEIN 7.5 g/dL (6.4-8.2)
[2021-01-08 04:15] LABS: URINE BILIRUBIN NEGATIVE (Negative); URINE BLOOD NEGATIVE (Negative); URINE CLARITY CLEAR; URINE COLOR YELLOW; URINE GLUCOSE-RANDOM 3+ (Negative); URINE KETONES NEGATIVE (Negative); URINE LEUKOCYTES-REFLEX NEGATIVE (Negative); URINE NITRITE-REFLEX NEGATIVE (Negative); URINE PROTEIN NEGATIVE (Negative); URINE UROBILINOGEN 0.2 E.U./dl (0.2-1.0)
[2021-01-08 10:07] LABS: HEMATOCRIT 43.3 % (42.0-52.0); HEMOGLOBIN 15.1 gm/dL (14.0-18.0); MCH 30.3 pg (26.0-34.0); MCHC 34.9 g/dL (28.0-37.0); MCV 86.7 fL (80.0-100.0); MPV 7.2 fl. (7.2-11.1); RBC 4.99 mil/uL (4.50-6.00); WBC 6.9 thou/uL (4.0-11.0)
[2021-01-08 10:21] LABS: APTT 27.3 Seconds (25.0-31.3); PROTIME 10.3 Seconds (9.20-11.50)
--- NOTE | 2021-01-08 10:23 | CON ---
[address] [address] CONSULTATION Name: RICKI BLUE Room: [address] [place] Sim#: [id number] Admission: 01/08/21 Attend Phys: Renate Orosco Discharge: Date of : 48 Report #: [id number] THIS REPORT FOR: cc: Maritza Rodriguez MD, Tuongvan T. MD [place], Michael J. MD [facility] ~ cc: Lee Donovan MD [facility] DATE OF CONSULTATION: 01/08/2021 CARDIOLOGY CONSULTATION INDICATION: Unstable angina. HISTORY OF PRESENT ILLNESS: The patient is a very pleasant 70-year-old gentleman with history of coronary artery disease. In September of this year, he had percutaneous coronary intervention to the proximal right coronary artery and the proximal to mid left anterior descending coronary artery. In October of this year, he had further percutaneous coronary intervention to the proximal and mid to distal LAD. The patient reports doing well up until 2 weeks ago where he started to have recurrence of some midsternal chest discomfort, described this as typical angina. Initially, this was easily relieved with rest or nitroglycerin. Last night, he had an episode that waxed and waned for 3-4 hours with partial relief with nitroglycerin. He has remained on dual antiplatelet therapy since his original procedure including aspirin and Effient. He is without other specific cardiac complaint. Risk factors include dyslipidemia, hypertension and type 2 diabetes mellitus. He quit smoking in the . He has mild aortic stenosis by echocardiogram in August of this year. PAST MEDICAL HISTORY: 1. Hypertension. 2. Dyslipidemia. 3. Type 2 diabetes mellitus. 4. Mild aortic stenosis. 5. Coronary artery disease with percutaneous coronary interventions as outlined above. 6. Tonsillectomy remotely. 7. Mild arthritis. ALLERGIES: PENICILLIN. HOME MEDICATIONS: Aspirin 81 mg daily, Tenoretic 50/25 one tablet daily, fish oil 1000 mg daily, Synjardy 07/999 mg 1 tablet daily, lisinopril 2.5 mg daily, Naprosyn 250 mg b.i.d., Nitrostat sublingual p.r.n., potassium chloride 20 [place] [address] CONSULTATION Name: RICKI BLUE Room: [address] M.R.#: [id number] Admission: 01/08/21 Attend Phys: Renate Orosco Discharge: Date of : 48 Report #: [id number] daily, Effient 10 mg daily, rosuvastatin 40 mg daily, terbinafine 250 mg daily, vitamin E 1000 units daily. SOCIAL HISTORY: The patient is single. 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 He quit smoking in the . He drinks alcohol occasionally. FAMILY HISTORY: Noncontributory. REVIEW OF SYSTEMS: A 14-point review of systems positive for chest discomfort, dyspnea on exertion, orthopnea, history of heart murmur, type 2 diabetes mellitus, seasonal allergies, MEDICAL ALLERGIES TO PENICILLIN, arthritis in his hands and he wears glasses without acute visual change. Otherwise, 14-point review of systems was unremarkable. PHYSICAL EXAMINATION: VITAL SIGNS: Blood pressure 123/63, pulse is 74. GENERAL: This is a healthy-appearing, pleasant gentleman in no distress. Mood and affect appropriate. HEENT: The patient is wearing glasses. Extraocular muscles intact. Mucous membranes are moist. NECK: Examination of the neck shows no jugular venous distention. There is a cardiac murmur that radiates to the carotids. CHEST: Examination of the chest reveals clear lung fairchild without wheezes or rales. CARDIAC: Reveals a regular rhythm with 2/6 systolic ejection murmur heard at the right upper sternal border. ABDOMEN: Reveals normal bowel sounds. The abdomen is soft, nontender. EXTREMITIES: Shows no edema. Peripheral pulses are 2+ and easily palpable. DIAGNOSTIC DATA: A 12-lead EKG shows sinus rhythm with very subtle ST segment depression that is minimally changed from previous EKGs. Chest x-ray shows no acute cardiopulmonary abnormality. LABORATORY DATA: Labs are evaluated. Troponins are unremarkable x 2 sets thus far. Potassium was 3.0. Labs otherwise fairly unremarkable. IMPRESSION AND RECOMMENDATIONS: 1. Progressive/unstable angina. The patient has had relief with nitro paste. He is no longer having chest pain. Enzymes thus far are unremarkable. Plan to continue dual antiplatelet therapy. We will start a heparin drip per Cardiology protocol overnight. Adding ranolazine 500 mg twice daily in an effort to improve chest discomfort. 2. Coronary artery disease with recent percutaneous coronary intervention. The [address] [place] [address] CONSULTATION Name: RICKI BLUE Room: [address] G[place] PetitR.#: [id number] Admission: 01/08/21 Attend Phys: Renate Orosco Discharge: Date of : 48 Report #: [id number] patient remains on dual antiplatelet therapy. We will continue aspirin, Effient at current doses. 3. Hypertension. Presently stable on current regimen. 4. Dyslipidemia. Last LDL was 85. I am adding Zetia 10 mg to his rosuvastatin 40 mg. 5. Type 2 diabetes mellitus. Presently stable. <ELECTRONICALLY SIGNED> By: Marcos White MD, FACC 01/08/21 1023 0828 0850Marcos White MD, FACC /nt
--- NOTE | 2021-01-08 10:26 | EKG ---
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: NANCI : 1950 Requested By: Cecilia Gannon Order Number: [id number] MD: Marcos White Measurements Intervals [place] Rate: 76 P: 54 CA: 200 QRS: 3 QRSD: 84 T: 19 QT: 532 QTc: 599 Interpretive Statements Sinus rhythm Borderline T wave abnormalities Prolonged QT interval Compared to ECG 10/27/2020 09:26:54 Prolonged QT interval now present T-wave abnormality still present Electronically Signed On 01-08-2021 10:26:39 CDT by Marcos White [email or web address] <ELECTRONICALLY SIGNED> By: Marcos White MD, FACC 01/08/21 1026 3 3 Marcos White MD, FACC /EPI
[2021-01-08 21:06] LABS: MAGNESIUM 2.1 mg/dL (1.8-2.4); PHOSPHORUS* 2.7 mg/dL (2.5-4.9)
[2021-01-09] VITALS (17 sets, daily range): BP systolic 90–138; BP diastolic 43–69
[2021-01-09 00:56] LABS: HEMATOCRIT 43.1 % (42.0-52.0); HEMOGLOBIN 15.2 gm/dL (14.0-18.0); MCH 30.8 pg (26.0-34.0); MCHC 35.2 g/dL (28.0-37.0); MCV 87.5 fL (80.0-100.0); MPV 7.2 fl. (7.2-11.1); RBC 4.92 mil/uL (4.50-6.00); RDW-CV 13.3 % (10.5-14.5); WBC 10.6 thou/uL (4.0-11.0)
[2021-01-09 01:09] LABS: CALCIUM 8.7 mg/dL (8.5-10.1); CREATININE 0.9 mg/dL (0.6-1.3); POTASSIUM 3.5 mmol/L (3.5-5.1)
--- NOTE | 2021-01-09 13:46 | EKG ---
[place] [address] ELECTROCARDIOGRAM REPORT Name: RICKI BLUE Room: [place] [address] ADM IN M.R.#: [id number] Admission: 01/08/21 Attend Phys: Guero Nevarez Discharge: Date of : 48 Date of Service: 01/09/21 1259 Report #: [id number] THIS REPORT FOR: //name// [facility] Test Date: 2021-01-09 Test Time: 12:59:42 Pat Name: RICKI BLUE Department: Room: [place] [address] Gender: M Manager Air: : 1950 Requested By: Cheng Jj Order Number: [id number] Reading MD: Cheng Jj Measurements Intervals [place] Rate: 64 P: 31 RI: 217 QRS: -11 QRSD: 91 T: -12 QT: 451 QTc: 466 Interpretive Statements Sinus rhythm Borderline prolonged RI interval Low voltage, precordial leads Borderline T abnormalities, inferior leads Compared to ECG 01/08/2021 01:44:28 Low QRS voltage now present Prolonged QT interval no longer present T-wave abnormality still present Electronically Signed On 01-09-2021 13:46:03 CDT by Cheng Jj [email or web address] <ELECTRONICALLY SIGNED> By: Cheng Jj MD, FACC 01/09/21 1346 1259 1259 Cheng Jj MD, FAC /EPI
--- NOTE | 2021-01-09 14:14 | 2DMMODE ---
[place] [address] 2 D/M-MODE ECHOCARDIOGRAM Name: RICKI BLUE Room: [facility] ADM IN .[place].#: [id number] Admission: 01/08/21 Attend Phys: Guero Nevarez Discharge: Date of : 48 Date of Service: 01/09/21 1414 Report #: [id number] THIS REPORT FOR: cc: Maritza Rodriguez MD, Tuongvan T. MD Blick, David R. MD [facility] ~ ADDENDUM APPROVED REPORT Study performed: 01/09/2021 10:37:58 EXAM: Comprehensive 2D, Doppler, and color-flow Echocardiogram Patient Location: In-Patient Room #: 227 Status: routine BSA: 2.30 HR: 69 bpm BP: 129/69 mmHg Rhythm: NSR Other Information Study Quality: Good Indications CAD Chest Pain 2D Dimensions IVSd: 11.11 (7-11mm) LVOT Diam: 20.85 (18-24mm) LVDd: 44.01 mm PWd: 8.96 (7-11mm) Ascending Ao: 36.83 (22-36mm) LVDs: 31.55 (25-40mm) Aortic Root: 30.24 mm Volumes Left Atrial Volume (Systole) LA ESV Index: 29.40 mL/m2 Aortic Valve AoV Peak Benedict.: 2.14 m/s AO Peak Gr.: 18.37 mmHg LVOT Max P.54 mmHg AO Mean Gr.: 10.82 mmHg LVOT Mean P.93 mmHg LVOT Max V: 0.94 m/s AO V2 VTI: 46.20 cm LVOT Mean V: 0.65 m/s AUSTIN (VTI): 1.54 cm2 LVOT V1 VTI: 20.87 [place] [address] 2 D/M-MODE ECHOCARDIOGRAM Name: RICKI BLUE ANKUR Room: [place] [address] ADM IN .R.#: [id number] Admission: 01/08/21 Attend Phys: Guero Nevarez Discharge: Date of : 48 Date of Service: 01/09/21 1414 Report #: [id number] AI Swift: 2.56 m/s2 AI PHT: 380.94 ms Mitral Valve E/A Ratio: 1.72 MV Decel. Time: 285.93 ms MV E Max Benedict.: 0.89 m/s MV PHT: 82.92 ms MVA (PHT): 2.65 cm2 TDI E/Lateral E': 7.42 E/Medial E': 7.42 Medial E' Benedict.: 0.12 m/s Lateral E' Benedict.: 0.12 m/s Pulmonary Valve PV Peak Benedict.: 0.73 m/s PV Peak Gr.: 2.15 mmHg Left Ventricle The left ventricle is normal size. There is normal LV segmental wall motion. There is normal left ventricular wall thickness. Left ventricular systolic function is normal. The left ventricular ejection fraction is within the normal range. LVEF is 50-55%. Grade IV - fixed restrictive diastolic dysfunction. Right Ventricle The right ventricle is normal size. The right ventricular systolic function is normal. Atria Left atrium is mildly dilated. The right atrium size is normal. Aortic Valve Aortic valve is calcified. Mild aortic regurgitation. Mild aortic stenosis. Mitral Valve There is mitral annular calcification. The mitral valve is normal in structure. Mild mitral regurgitation. No evidence of mitral valve stenosis. Tricuspid Valve The tricuspid valve is normal in structure. Trace tricuspid regurgitation. Unable [place] [address] 2 D/M-MODE ECHOCARDIOGRAM Name: RICKI BLUE Room: [address] IN [facility]#: [id number] Admission: 01/08/21 Attend Phys: Guero Nevarez Discharge: Date of : 48 Date of Service: 01/09/21 1414 Report #: [id number] Pulmonic Valve The pulmonary valve is normal in structure. There is no pulmonic valvular regurgitation. Great Vessels The aortic root is normal in size. IVC is normal in size and collapses >50% with inspiration. Pericardium There is no pericardial effusion. <Conclusion> LVEF is 50-55%. Left atrium is mildly dilated. Mild aortic stenosis. Mild aortic regurgitation. Mild mitral regurgitation. <ELECTRONICALLY SIGNED> By: Cheng Jj MD, FACC 01/09/21 1414 13 13 Cheng Jj MD, FACC /INF
--- NOTE | 2021-01-09 14:46 | CARD ---
[address] [address] CARDIAC CATH REPORT Name: RICKI BLUE Room: [place] [address] ADM IN .R.#: [id number] Admission: 01/08/21 Attend Phys: Renate Orosco Discharge: Date of : 48 Report #: [id number] THIS REPORT FOR: cc: Maritza Rodriguez MD, Tuongvan T. MD Blick, David R. MD [facility] ~ ADDENDUM APPROVED REPORT Study performed: 01/09/2021 11:45:00 Patient Details Patient Status: In-Patient Room #: The patient is a 70 year-old male Event Personnel Dr. Jj, Henrique Sweeney RN, Jenaro Xiao RTR, Tova Ansari RTR Procedures Performed Left heart Cath with coronary angiography, Drug eluting stent placement mid RCA Indication Non-STEMI , Chest pain Risk Factors Hypercholesterolemia, Coronary Artery DiseaseHypertension Previous Procedures/Diagnoses Previous PCI Admission/Lab Medications/Medications given during procedure Heparin Unfract. Procedure Narrative The patient was brought electively to the Cardiac Catheterization Laboratory and was prepped and draped in a sterile manner. The right wrist was infiltrated with 2% Lidocaine subcutaneous anesthesia. IV conscious sedation was used throughout procedure with appropriate monitoring and was performed in the presence of a registered nurse who was an independent trained observer other than the physician performing the procedure. A 6Fr Glidesheath slender sheath was inserted into the right radial artery. Coronary angiography was performed using coronary diagnostic [place] [address] CARDIAC CATH REPORT Name: RICKI BLUE Room: [address] IN [facility].#: [id number] Admission: 01/08/21 Attend Phys: Renate Orosco Discharge: Date of : 48 Report #: [id number] system was accessed and visualized with a Diagnostic 6Fr JR4 catheter. The left coronary system was accessed and visualized with a Diagnostic 6Fr JL4 catheter. The left ventricle was accessed and visualized with a Diagnostic catheter. Left ventricular/Aortic Valve gradient assessed via catheter pullback with a JR4 Diagnostic Catheter. Closure device was deployed with a 6 Fr vascband. The patient tolerated the procedure well and there were no complications associated with the procedure. There was no hematoma. Radial Band was utilized for hemostasis with 10 ml of air in the band. Coronary Angiography The patient's coronary anatomy is right dominant. Diagnostic Cath Left Main 0% stenosis LAD Stent in proximal LAD had 0% restenosis Diagonal 2 ostial 60% stenosis Circumflex 30% mid stenosis OM2 60% ostial stenosis Right Coronary Long stent that started proximally and ended at the acute margin, had a 30% proximal and 99% mid restenosis. R PDA 50% mid stenosis RPLV 70% mid stenosis Left Ventriculography Left Ventriculography was not performed. Hemodynamics The aortic pressure is 83/46 mmHg with a mean of 62 mmHg. The left ventricular pressure is 95/3 mmHg with a mean of 16 mmHg. The left ventricular end diastolic pressure is 16 mmHg. Pullback from the left ventricle to the aorta revealed a 10 mm gradient across the aortic valve. PCI Technique Lesion Anticoagulation was achieved with Heparin. Patient was preloaded with Effient. Percutaneous coronary intervention was performed on the mid right coronary artery. The lesion stenosis prior to intervention was 99% with DIETER 3 flow. A JCR4 6Fr Guide Catheter was used to engage the Right ostium. A 190cm BMW Interventional Guidewire was used to cross the lesion. BALLOON DILATION A Balloon catheter 2.5 x 12 Trek was inserted and inflated up to 18atm for 14seconds. Repeat [place] [address] CARDIAC CATH REPORT Name: RICKI BLUE ANKUR Room: [address]#: [id number] Admission: 01/08/21 Attend Phys: Renate Orosco Discharge: Date of : 48 Report #: [id number] post-dilatation results: 40% stenosis. STENT DEPLOYMENT A drug-eluting stent 3.25 x 12 Xience Chelsea was inserted and inflated up to 16atm for 14seconds. Repeat angiography revealed the following post-stent deployment results: 0% stenosis. Additional Inflation: 22atm for 16seconds. Additional Inflation: 22atm for 7seconds. The patient was noted to have early restenosis of a Medtronic drug eluitng stent that was placed several months ago. It was therefore decided to place an Abbot drug eluting stent to treat restenosis. Final angiography reveals 0 % stenosis with DIETER 3 flow. Conclusion 1. no restenosis of stents placed in the proximal LAD 2. 99% restenosis of a stent placed in the mid RCA 3. successful placement of an Abbot drug eluitng stent in the mid RCA Recommendations Cardiac Rehabilitation Referral Aggressive Medical Therapy <ELECTRONICALLY SIGNED> By: Cheng Jj MD, FACC 01/09/21 1445 1445 1445Dashiva Jj MD, FACC /INF
[2021-01-10] VITALS: BP 95/49
[2021-01-10 04:00] VITALS: BP 98/51
[2021-01-10 04:23] LABS: HEMATOCRIT 40.2 % (42.0-52.0); HEMOGLOBIN 13.7 gm/dL (14.0-18.0); MCH 30.4 pg (26.0-34.0); MCHC 34.2 g/dL (28.0-37.0); MPV 7.3 fl. (7.2-11.1); RBC 4.52 mil/uL (4.50-6.00); RDW-CV 13.4 % (10.5-14.5); WBC 8.6 thou/uL (4.0-11.0)
[2021-01-10 04:31] LABS: CALCIUM 8.4 mg/dL (8.5-10.1); CREATININE 0.9 mg/dL (0.6-1.3); POTASSIUM 3.7 mmol/L (3.5-5.1)
[2021-01-10 08:00] VITALS: BP 99/51
[2021-01-10] MEDS ORDERED: ZETIA10 MG PO (10:41)
[2021-01-10 11:04] VITALS: BP 99/51
[2021-01-10 11:26] VITALS: BP 99/51
[2021-01-10 12:00] VITALS: BP 121/52
== END 2021-01-10 12:14 | disposition home or self-care (01) | DRG 246 ==
LOC: M.ERS 01:45 → M.2W 03:33 → M.TBA-ER 03:33 → M.2W 03:52
PROVIDERS: Emergency Medicine; Family Medicine; Internal Medicine Cardiovascular Disease; ADMIT Internal Medicine; ATTEND Internal Medicine
PROC: 4A023N7 Measurement of Cardiac Sampling and Pressure, Left Heart, Percutaneous Approach (ICD-10-PCS; principal; 2021-01-09)
PROC: B2111ZZ Fluoroscopy of Multiple Coronary Arteries using Low Osmolar Contrast (ICD-10-PCS; principal; 2021-01-09)
PROC: 027034Z Dilation of Coronary Artery, One Artery with Drug-eluting Intraluminal Device, Percutaneous Approach (ICD-10-PCS; principal; 2021-01-09)
DX: T82.855A Stenosis of coronary artery stent, initial encounter (principal); I50.33 Acute on chronic diastolic (congestive) heart failure; I21.4 Non-ST elevation (NSTEMI) myocardial infarction; I25.110 Atherosclerotic heart disease of native coronary artery with unstable angina pectoris; E87.1 Hypo-osmolality and hyponatremia; Y83.8 Other surgical procedures as the cause of abnormal reaction of the patient, or of later complication, without mention of misadventure at the time of the procedure; E78.00 Pure hypercholesterolemia, unspecified; E11.9 Type 2 diabetes mellitus without complications; E78.5 Hyperlipidemia, unspecified; M19.90 Unspecified osteoarthritis, unspecified site; E87.6 Hypokalemia; I35.0 Nonrheumatic aortic (valve) stenosis; I11.0 Hypertensive heart disease with heart failure; Z20.822 Contact with and (suspected) exposure to COVID-19; Y92.89 Other specified places as the place of occurrence of the external cause; Z86.14 Personal history of Methicillin resistant Staphylococcus aureus infection; Z88.0 Allergy status to penicillin; Z87.891 Personal history of nicotine dependence; Z79.899 Other long term (current) drug therapy; Z23 Encounter for immunization

== ENCOUNTER 2021-04-13 09:59 | Observation (INO) | payer MEDICARE ==
[~2021-04-13] VITALS: Ht 182.9 cm; Wt 102.1 kg
--- NOTE | ~2021-04-13 | H ---
[address] [address] HISTORY AND PHYSICAL Name: BLUERICKI Room: [address] [place] PetitRMemo#: [id number] Admission: 04/13/21 Attend Phys: Marcos White MD Discharge: 04/14/21 Date of : 48 Report #: [id number] THIS REPORT FOR: cc: Maritza Rodriguez MD, Tuongvan T. MD [facility],Medical Records Staff ~ Please refer to the History and Physical performed in the physician's office. By: [id number] Records Staff [facility] /RIGO
[~2021-04-13 09:59] MED LIST changes: +SYNJARDY 5-1,01 EACH PO; +ZETIA10 MG PO
[2021-04-13 11:16] LABS: HEMATOCRIT 45.8 % (42.0-52.0); HEMOGLOBIN 15.5 gm/dL (14.0-18.0); MCH 29.6 pg (26.0-34.0); MCHC 33.9 g/dL (28.0-37.0); MCV 87.3 fL (80.0-100.0); RBC 5.25 mil/uL (4.50-6.00); RDW-CV 13.6 % (10.5-14.5); WBC 8.6 thou/uL (4.0-11.0)
[2021-04-13 11:17] VITALS: BP 127/65
[2021-04-13 11:27] LABS: ANION GAP 8 mmol/L (7-16); BUN 14 mg/dL (7-18); CALCIUM 8.7 mg/dL (8.5-10.1); CHLORIDE 98 mmol/L (98-107); CO2 29 mmol/L (21-32); GLUCOSE 124 mg/dL (70-99); POTASSIUM 3.9 mmol/L (3.5-5.1); SODIUM 135 mmol/L (136-145)
[2021-04-13 11:32] LABS: ALBUMIN 3.6 g/dL (3.4-5.0); ALKALINE PHOSPHATASE 62 U/L (46-116); CHOLESTEROL 116 mg/dL (<200); HDL CHOLESTEROL 52 mg/dL (>40); LDL CHOLESTEROL 49 mg/dL (<100); SGOT 30 U/L (15-37); SGPT 37 U/L (30-65); TC:HDL 2.2 Ratio (Not establshd); TOTAL BILIRUBIN 0.8 mg/dL (<0.1-1.0); TOTAL PROTEIN 7.2 g/dL (6.4-8.2); TRIGLYCERIDE 75 mg/dL (<150); VLDL 15 mg/dL (<40)
[2021-04-13 11:33] LABS: SERUM ASSESSMENT Clear
[2021-04-13 11:43] LABS: APTT 26.8 Seconds (25.0-31.3); PROTIME 10.1 Seconds (9.20-11.50)
--- NOTE | 2021-04-13 14:27 | EKG ---
[place] [address] ELECTROCARDIOGRAM REPORT Name: RICKI BLUE Room: [address] M.R.#: [id number] Admission: 04/13/21 Attend Phys: Marcos White, Discharge: Date of : 48 Date of Service: 04/13/21 1141 Report #: [id number] THIS REPORT FOR: //name// [facility] Test Date: 2021-04-13 Test Time: 11:41:38 Pat Name: RICKI BLUE Department: Room: [facility] Gender: M Feather Maker: LILIA : 1950 Requested By: Lee Donovan Order Number: [id number] Jose Antonio MD: Lee Donovan Measurements Intervals [place] Rate: 57 P: 30 OH: 209 QRS: -1 QRSD: 87 T: -5 QT: 433 QTc: 422 Interpretive Statements Sinus rhythm Minor nonspecific ST-T alterations Compared to ECG 01/09/2021 12:59:42 No significant interval change Electronically Signed On 04-13-2021 14:27:05 CENTRAL CONTROL ROOM OPERATOR by Lee Donovan [email or web address] <ELECTRONICALLY SIGNED> By: Lee Donovan MD, [facility] 04/13/21 1427 1141 1141 Lee Donovan MD, [facility] /EPI
[2021-04-13 14:39] VITALS: BP 140/69
[2021-04-13 15:05] VITALS: BP 124/61
[2021-04-13 15:16] VITALS: BP 136/79
[2021-04-13 15:33] VITALS: BP 136/79
--- NOTE | 2021-04-13 17:16 | NUR ---
PT HAS ARRIVED TO UNIT FROM REPAIRER VENEER SHEET. R GROIN SITE INTACT, STABLE. SCANT AMOUNT OF BLOOD ON GAUZE UNDER TEGADERM, REPAIRER VENEER SHEET RN CAME TO BEDSIDE AND STATED THIS WAS SAME PRIOR. PT AT 30 DEGREES, EATING DINNER.
--- NOTE | 2021-04-13 19:27 | NUR ---
R GROIN SITE CHECKED BEDSIDE WITH NIGHT ELVER HANEY. NO CHANGES.
[2021-04-13 20:00] VITALS: BP 109/65
--- NOTE | 2021-04-14 02:47 | NUR ---
RT GROIN SITE WITHOUT HEMATOMA, ECCHYMOSIS OR DRAINAGE. INSTRUCTED TO MONITOR SITE AFTER AMBULATING EACH TIME TONIGHT. TELEMETRY ON SHOWING SR WITH 1ST AVB. VOIDING PER URINAL, URINE CONT TO BE DK RED. NO COMPLAINTS VOICED.
[2021-04-14 03:05] VITALS: BP 107/52
[2021-04-14 04:13] LABS: HEMATOCRIT 42.8 % (42.0-52.0); HEMOGLOBIN 14.4 gm/dL (14.0-18.0); MCH 29.8 pg (26.0-34.0); MCHC 33.7 g/dL (28.0-37.0); MCV 88.4 fL (80.0-100.0); MPV 7.1 fl. (7.2-11.1); RBC 4.84 mil/uL (4.50-6.00); RDW-CV 13.3 % (10.5-14.5); WBC 8.2 thou/uL (4.0-11.0)
[2021-04-14 04:44] LABS: ALBUMIN 3.4 g/dL (3.4-5.0); CALCIUM 8.4 mg/dL (8.5-10.1); POTASSIUM 3.3 mmol/L (3.5-5.1); TOTAL BILIRUBIN 0.8 mg/dL (<0.1-1.0); TOTAL PROTEIN 6.3 g/dL (6.4-8.2)
[2021-04-14 05:01] VITALS: BP 110/54
[2021-04-14 08:00] VITALS: BP 124/61
--- NOTE | 2021-04-14 11:17 | CARD ---
[address] [address] CARDIAC CATH REPORT Name: RICKI BLUE Room: [address] [place] M.R.#: [id number] Admission: 04/13/21 Attend Phys: Marcos White MD Discharge: Date of : 48 Report #: [id number] THIS REPORT FOR: cc: Maritza Rodriguez MD, Tuongvan T. MD Holkins, John M. MD [facility] ~ APPROVED REPORT Study performed: 04/13/2021 11:32:50 Patient Details Patient Status: Out-Patient Room #: The patient is a 70 year-old male Event Personnel Lee Donovan Computer Laboratory Technician, Marcos White Car Stower, Patricia Judd RTR Scrub, Lili Zaidi RN RN, Meghana Hull RTR Monitor Procedures Performed Art Access - R femoral artery Left Heart Cath w/or w/o Coronaries LHC OJS Place w/wo Plasty Single LAD JOS Place w/wo Plasty Single RCA Hemostasis w/ Angioseal Indication Unstable angina Risk Factors Hypercholesterolemia, Hypertension, Diabetes Previous Procedures/Diagnoses Previous PCI Admission/Lab Medications/Medications given during procedure Lidocaine Subcut 14 ml, Angiomax IV 15.5 ml, Angiomax IV 35.7 ml per hr, Hydralazine (Apresoline) IV 20 mg, Effient 30 Procedure Narrative The patient was brought electively to the Cardiac Catheterization Laboratory and was prepped and draped in a sterile manner. The right femoral was infiltrated with 2% Lidocaine subcutaneous anesthesia. IV conscious sedation was used throughout procedure with appropriate monitoring and was performed in the presence [place] [address] CARDIAC CATH REPORT Name: YASMINE BLUESYEDA PASCUAL Room: [address] Roney#: [id number] Admission: 04/13/21 Attend Phys: Marcos White MD Discharge: Date of : 48 Report #: [id number] who was an independent trained observer other than the physician performing the procedure. A Laurier 6 FR sheath was inserted into the right femoral artery. Coronary angiography was performed using coronary diagnostic catheters. The right coronary system was accessed and visualized with a Diagnostic 6 Fr JR 4 catheter. The left coronary system was accessed and visualized with a Diagnostic 6 Fr JL 4 catheter. The left ventricle was accessed and visualized with a Diagnostic 6 Fr Pigtail catheter. Left ventricular/Aortic Valve gradient assessed via catheter pullback. Left ventriculogram was performed in REYES projection. Pre-demployment femoral angiogram was performed . Closure device was deployed with a Fr Angioseal STS 6Fr. The patient tolerated the procedure well and there were no complications associated with the procedure. A hematoma occurred. Intraoperative Conscious Sedation Sedation start time: 12:06 Case end Time: 13:31 Fentanyl 150 mcg Versed 4 mg Fluoro Time: 24.90 minutes Dose: DAP 173032.00 cGycm2 3238.86 mGy Contrast Type and Amount: Visipaque 320 mL Coronary Angiography The patient's coronary anatomy is right dominant. Diagnostic Cath Left Main 20% proximal narrowing LAD 75% mid vessel stenosis with widely patent proximal stent Circumflex Nondominant vessel with 50% mid vessel narrowing Right Coronary Large dominant vessel with 80% ostial proximal stenosis 40% mid vessel in-stent restenosis and 90% stenosis just distal to the acute margin Left Ventriculography The left ventricle is normal in size with normal contractility. The left ventricular ejection fraction is estimated to be 60%. Left ventricular wall motion abnormalities are not present. There is no mitral insufficiency. Hemodynamics The aortic pressure is 114/55 mmHg with a mean of 78 mmHg. The left ventricular pressure is 119/6 mmHg with [place] [address] CARDIAC CATH REPORT Name: RICKI BLUE Room: [address]#: [id number] Admission: 04/13/21 Attend Phys: Marcos White MD Discharge: Date of : 48 Report #: [id number] ventricular end diastolic pressure is 23 mmHg. There was no gradient across the aortic valve upon pullback. PCI Technique Lesion Anticoagulation was achieved with Angiomax. Patient was preloaded with Angiomax IV 15.5 ml. Percutaneous coronary intervention was performed on the Distal right coronary artery. The lesion stenosis prior to intervention was 90% with DIETER 3 flow. A 6F JR 3.5 SH Guide Catheter was used to engage the right ostium. A IG: BMW 190cm Interventional Guidewire was used to cross the lesion. BALLOON DILATION A Balloon catheter Euphora SC 2.0x12mm was inserted and inflated up to 10.00atm for 14seconds. A balloon catheter NC Trek RX 2.5 x 12 was inserted and inflated up to 16 CLIFFORD for 14 seconds. STENT DEPLOYMENT A drug-eluting stent Salomón RX Stent 2.5X12mm was inserted and inflated up to 16.00atm for 13seconds. Additional Inflation: 16.00atm for 14seconds. POST STENT DEPLOYMENT BALLOON DILATION A Balloon catheter NC Trek RX 2.75 X 12 was inserted and inflated up to 16.00atm for 9seconds. Additional Inflation: 16.00atm for 14seconds. Final angiography reveals 10 % stenosis with DIETER 3 flow. PCI Technique Lesion 2 Percutaneous Coronary Intervention was performed on the proximal right coronary artery. Patient was preloaded with Angiomax IV 15.5 ml. The lesion stenosis prior to intervention was 80% with DIETER 3 flow. A 6F JR 3.5 SH Guide Catheter was used to engage the right ostium. A IG: BMW 190cm Interventional Guidewire was used to cross the lesion. Balloon Dilation A Balloon catheter Euphora SC 2.0x12mm was inserted and inflated up to 16.00atm for 8seconds. Stent Deployment A drug-eluting stent Hagerman Resolute Stent RX 3.0 X18MM was inserted and inflated up to 16.00atm for 12seconds. Additional Inflation: 18.00atm for 13seconds. [address] [address] CARDIAC CATH REPORT Name: RICKI BLUE Room: M.[address]ilar[address] Sim#: [id number] Admission: 04/13/21 Attend Phys: Marcos White MD Discharge: Date of : 48 Report #: [id number] Final angiography reveals 0 % stenosis with DIETER 3 flow. PCI Technique Lesion 3 Percutaneous Coronary Intervention was performed on the Mid left anterior descending artery segment. Patient was preloaded with Angiomax IV 15.5 ml. The lesion stenosis prior to intervention was 75% with DIETER 3 flow. A 6FR XB LAD 3.5 Guide Catheter was used to engage the left ostium. A IG: BMW 190cm Interventional Guidewire was used to cross the lesion. Balloon Dilation A Balloon catheter NC Trek RX 2.5 X 12 was inserted and inflated up to 16.00atm for 11seconds. Additional Inflation: 18.00atm for 14seconds. Additional Inflation: 22.00atm for 10seconds. Stent Deployment A drug-eluting stent Hagerman RX Stent 2.5X15mm was inserted and inflated up to 16.00atm for 11seconds. Additional Inflation: 18.00atm for 14seconds. Final angiography reveals 10 % stenosis with DIETER 3 flow. PCI Technique Lesion 4 Percutaneous Coronary Intervention was performed on the mid left anterior descending artery segment. Conclusion 1. Significant multivessel coronary artery disease characterized by the following: A 75% mid LAD stenosis with a widely patent proximal LAD stent B 80% ostial proximal right coronary stenosis with 40% mid vessel in-stent narrowing and 90% stenosis just distal to the acute margin C nondominant circumflex with 50% mid vessel narrowing 2. Normal left ventricular systolic function, estimated ejection fraction of 60% 3. Moderate elevation of left ventricular end-diastolic pressure at rest 4. Successful PCI with deployment of sequential [place] [address] CARDIAC CATH REPORT Name: RICKI BLUE Room: [address] Gely PetitRMemo#: [id number] Admission: 04/13/21 Attend Phys: Marcos White MD Discharge: Date of : 48 Report #: [id number] at the sites of 80% ostial- proximal and 90% distal right coronary stenosis with 0 and 10% residual narrowings and DIETER-3 flow to the distal vessel 5. Successful PCI with deployment of a drug-eluting stent at the site of 75% mid LAD stenosis with 10% residual narrowing and DIETER-3 flow to the distal vessel Recommendations Cardiac Risk Reduction Program Aggressive Medical Therapy Medications Administered Prasugrel Diagnostic Cath Approved by: Marcos White MD Date/Time: 04/14/2021 11:09:52 <ELECTRONICALLY SIGNED> By: Lee Donovan MD, FACC 04/14/21 1117 1117Lee Donovan MD, FACC /INF
--- NOTE | 2021-04-14 11:27 | EKG ---
[place] [address] ELECTROCARDIOGRAM REPORT Name: RICKI BLUE Room: [address] M.R.#: [id number] Admission: 04/13/21 Attend Phys: Marcos White, Discharge: Date of : 48 Date of Service: 04/14/21 [facility] Report #: [id number] THIS REPORT FOR: //name// [facility] Test Date: 2021-04-14 Test Time: 10:24:59 Pat Name: RICKI BLUE Department: Room: [facility] Gender: M Cat Scan Tech: [id number] : 1950 Requested By: Marcos White Order Number: [id number] Jose Antonio MD: Lee Donovan Measurements Intervals [place] Rate: 69 P: 20 OH: 220 QRS: -12 QRSD: 80 T: -2 QT: 576 QTc: 618 Interpretive Statements Sinus rhythm Atrial premature complex Prolonged OH interval Inferior infarct, old Possible anteroseptal infarct, old Borderline QT prolongation for rate Compared to ECG 04/13/2021 11:41:38 Atrial premature complex(es) now present First degree AV block now present Myocardial infarct finding now possible Electronically Signed On 04-14-2021 11:27:38 ADMINISTRATIVE ASSOCIATE by Lee Donovan [email or web address] <ELECTRONICALLY SIGNED> By: Lee Donovan MD, [facility] 04/14/21 1127 1024 1024 Lee Donovan MD, [facility] /EPI
--- NOTE | 2021-04-14 11:29 | D ---
[address] [address] DISCHARGE SUMMARY Name: RICKI BLUE Room: [address] G[place] PetitRMemo#: [id number] Admission: 04/13/21 Attend Phys: Marcos White MD Discharge: Date of : 48 Report #: [id number] THIS REPORT FOR: cc: Maritza Rodriguez MD, Tuongvan T. MD Holkins, John M. MD [facility] ~ DATE OF DISCHARGE: 04/14/2021 FINAL DISCHARGE DIAGNOSES: 1. Unstable angina. 2. Coronary artery disease. 3. Hypertension. 4. Hyperlipidemia. 5. Diabetes. 6. Mild , AI. PROCEDURES: 04/13/2021, left heart catheterization, left ventriculography, selective coronary arteriography, and percutaneous coronary intervention to the right coronary artery and LAD with drug-eluting stents deployed. HOSPITAL COURSE: The patient is a very pleasant 70-year-old male with complex coronary artery disease, status post multiple prior PCIs. He has underlying diabetes, hypertension, hyperlipidemia. He underwent a complex PCI in September and underwent restenting of the mid right coronary artery in December. Of late, he has noted recrudescence of chest pain with activity, typical of his prior angina. In this context, I recommended recatheterization, which was undertaken on 04/13/2021. That study demonstrated normal left ventricular size and systolic function, estimated ejection fraction of 60%. There was significant coronary disease with a 75% mid LAD stenosis, 80% proximal right coronary stenosis with a 40% midvessel narrowing and a 90% stenosis at the acute margin. There was 70% tubular narrowing of a small distal circumflex system. In this context, we performed a percutaneous coronary intervention, with PCI to the proximal and acute marginal portion of the right coronary artery with a 3.0 x 18 mm Salomón deployed in the proximal right coronary artery and a 2.5 x 12 Salomón in the mid right coronary artery with 0 and 10% residual narrowings. We deployed one 2.5 x 15 mm Salomón drug-eluting stent in the mid LAD with 0% residual narrowing. The patient did well post-procedurally and ambulated in the hallways without difficulty. There was good hemostasis at the right femoral site of catheterization. Laboratory revealed a sodium 137, potassium 3.3 [place] [address] DISCHARGE SUMMARY Name: RICKI BLUE NORRIS Room: [address]#: [id number] Admission: 04/13/21 Attend Phys: Marcos White MD Discharge: Date of : 48 Report #: [id number] given, BUN 13, creatinine 1.0, hemoglobin 14.4, white blood cell count 8200 with 202,000 platelets. High-sensitivity troponin nabila to 1503. There was chest pain early post-procedurally and no recurrence. DISCHARGE MEDICATIONS: He was discharged to home on the following medications: Potassium chloride 20 mEq daily, fish oil 1000 mg daily, lisinopril 2.5 mg daily, Naprosyn 250 mg b.i.d., vitamin E 1000 unit capsule daily, atenolol/hydrochlorothiazide 50/25 one tablet daily, prasugrel 10 mg daily, aspirin 81 mg daily, p.r.n. sublingual nitroglycerin, terbinafine 250 mg daily, empagliflozin/metformin 5-1000 mg daily, Zetia 10 mg daily, Crestor 20 mg daily. The patient is scheduled to return to see me in the office on 05/09/2021 at 11:30 a.m. Therefore, the patient is discharged home in stable condition on the above described medications with followup as iterated above. <ELECTRONICALLY SIGNED> By: Lee Donovan MD, FACC 04/14/21 1129 0924 [id number] Donovan MD, FAC /nt
--- NOTE | 2021-04-14 12:43 | NUR ---
DISCHARGE ORDERS RECEIVED. HEAVY MEDIA OPERATOR TRACKING WITH NO CHANGE IN RHYTHM. CONTINUES TO DENY CHEST PAIN, DIZZINESS OR ANY DISCOMFORT AT THIS TIME. EDUCATED ON POST CARDIAC CATH RESTRICTIONS, INSTRUCTIONS - VERBALIZED UNDERSTANDING. GIVEN WRITTEN DISCHARGE INSTRUCTIONS FOR REINFORCEMENT TEACHING. HEAVY MEDIA OPERATOR AND SALINE LOCK DC'D. CARDIOLOGY NURSE ALSO IN EARLIER FOR POST CATH EDUCATION. AT BEDSIDE DURING TEACHING. VOIDING ИРИНА - OCCASIONAL BLOOD TINGED URINE, BUT STATES NOT HAVING DIFFICULTY VOIDING. ALL PERSONAL BELONGINGS GATHERED BY PATIENT AND FOR DISCHARGE.
--- NOTE | 2021-04-14 12:52 | NUR ---
Pt is admitted to the hospital on 04/13/21 with Unstable Angina. They are currently testing for C-Diff. Pt lives in a house with his with no steps to enter. Pt reports he is non ambulatory and uses a power wheelchair. Pt reports assists and times with ADL's. Pt reports he is active with [employer] for oxygen. Pt reports he has utlized [facility] in the past. Pt [facility], [facility], and [facility] (he will not return to [facility]). Pt fills his prescriptions through mail order or for short term [facility]. Pt reports it has been awhile since he has seen his PCP as he has been in and out of the hospital. CM to continue to follow for discharge needs.
[2021-04-14 12:58] VITALS: BP 124/61
--- NOTE | 2021-04-14 13:31 | NUR ---
DISCHARGED VIA W/C WITH ALL PERSONAL BELONGONGS AND WRITTEN DISCHARGE INSTRUCTIONS ACCOMPAINED BY
== END 2021-04-14 13:33 | disposition home or self-care (01) ==
LOC: M.CL 09:59 → M.TBA-CV 13:38 → M.2W 16:56 → M.CL 04-14 10:00 → M.2W 04-14 13:33
PROVIDERS: Internal Medicine; ADMIT Internal Medicine Cardiovascular Disease; ATTEND Internal Medicine Cardiovascular Disease
DX: I25.110 Atherosclerotic heart disease of native coronary artery with unstable angina pectoris (principal); Z20.822 Contact with and (suspected) exposure to COVID-19; I10 Essential (primary) hypertension; E78.5 Hyperlipidemia, unspecified; E11.9 Type 2 diabetes mellitus without complications; I35.0 Nonrheumatic aortic (valve) stenosis; Z79.899 Other long term (current) drug therapy; Z79.01 Long term (current) use of anticoagulants; Z88.0 Allergy status to penicillin; Z88.8 Allergy status to other drugs, medicaments and biological substances

== ENCOUNTER 2021-05-09 21:10 | Emergency (ER) | payer MEDICARE ==
[~2021-05-09] VITALS: Ht 182.9 cm; Wt 102.1 kg
[2021-05-09 22:07] LABS: ABSOLUTE BASOPHILS 0.1 thou/uL (0.0-0.2); ABSOLUTE EOSINOPHILS 0.3 thou/uL (0.0-0.7); ABSOLUTE MONOCYTES 0.9 thou/uL (0.0-1.2); ABSOLUTE NEUTROPHILS 4.9 thou/uL (1.6-8.1); BASOPHILS 0.8 %; EOSINOPHILS 3.1 %; HEMATOCRIT 40.4 % (42.0-52.0); HEMOGLOBIN 13.9 gm/dL (14.0-18.0); LYMPHOCYTES 24.8 %; MCH 29.6 pg (26.0-34.0); MCHC 34.4 g/dL (28.0-37.0); MCV 86.2 fL (80.0-100.0); MONOCYTES 11.4 %; MPV 6.6 fl. (7.2-11.1); NUCLEATED RBCS 0 /100WBC; PLATELET COUNT* 282 thou/uL (150-400); POLYS 59.9 %; RBC 4.69 mil/uL (4.50-6.00); RDW-CV 13.4 % (10.5-14.5); WBC 8.1 thou/uL (4.0-11.0)
[2021-05-09 22:19] LABS: CALCIUM 8.4 mg/dL (8.5-10.1); POTASSIUM 3.1 mmol/L (3.5-5.1)
[2021-05-09 22:30] LABS: ALBUMIN 3.1 g/dL (3.4-5.0); MAGNESIUM 1.9 mg/dL (1.8-2.4); TOTAL BILIRUBIN 0.3 mg/dL (<0.1-1.0); TOTAL PROTEIN 6.7 g/dL (6.4-8.2)
[2021-05-10] MEDS ORDERED: PROAIR HFA8.5 GM INH (00:22)
[2021-05-10] MEDS ORDERED: HYDROCODON-ACE1 EAC8 PO (00:26)
[2021-05-10 00:39] VITALS: BP 134/70
--- NOTE | 2021-05-10 11:10 | EKG ---
[place] [address] ELECTROCARDIOGRAM REPORT Name: RICKI BLUE Room: [facility]#: [id number] Admission: 05/09/21 Attend Phys: Discharge: 05/10/21 Date of : 48 Date of Service: 05/09/212117 Report #: [id number] THIS REPORT FOR: //name// [facility] ED Test Date: 2021-05-09 Test Time: 21:18:53 Pat Name: RICKI BLUE Department: Room: Gender: Observer [employer]: FRANCO : 1950 Requested By: Cecilia Gannon Order Number: [id number] MD: Lee Donovan Measurements Intervals [place] Rate: 80 P: 13 [place]: 198 QRS: -10 QRSD: 84 T: 238 QT: 360 QTc: 416 Interpretive Statements Sinus rhythm Inferior infarct, old Compared to ECG 04/14/2021 10:24:59 First degree AV block no longer present Myocardial infarct finding still present Electronically Signed On 05-10-2021 11:10:05 SAFETY COORDINATOR by Lee Donovan [email or web address] <ELECTRONICALLY SIGNED> By: Lee Donovan MD, [facility] 05/10/21 1110 17 17 Lee Donovan MD, [facility] /EPI
== END 2021-05-10 00:41 | disposition home or self-care (01) ==
LOC: M.ERS 21:10
PROVIDERS: Emergency Medicine
DX: R00.2 Palpitations (principal); Z20.822 Contact with and (suspected) exposure to COVID-19; E87.6 Hypokalemia; E11.9 Type 2 diabetes mellitus without complications; I10 Essential (primary) hypertension; E78.5 Hyperlipidemia, unspecified; Z79.82 Long term (current) use of aspirin; Z95.5 Presence of coronary angioplasty implant and graft; Z79.899 Other long term (current) drug therapy; Z88.0 Allergy status to penicillin; Z88.8 Allergy status to other drugs, medicaments and biological substances